=== PATIENT | female | born 1970 | race Asian ===

== ENCOUNTER 2017-05-08 05:58 | Observation (INO) | payer OTHER ==
--- NOTE | 2017-05-02 11:05 | MH ---
cc: TANISHA ALTAMIRANO DATE OF ADMISSION: 05/08/2017 DATE OF 1970 PRINCIPAL DIAGNOSIS Right breast cancer. ATTENDING PHYSICIAN Tanisha Altamirano MD HISTORY OF PRESENT ILLNESS The patient is a 47-year-old [place] female with newly diagnosed multicentric right breast cancer. She had a diagnostic bilateral mammogram at [facility] on February 15 which demonstrated very dense breast tissue and microcalcifications in the right breast. Breast MRI on March 04 demonstrated a 9 mm ocu-mgtw-wwuk area of enhancement between 11 and 12 o'clock in the left breast and four masses in the upper outer right breast. The largest was at 10 o'clock and targeted right breast ultrasound confirmed the lesion at 10 o'clock, 5 cm from the nipple and a lesion at 9 o'clock subareolar. Ultrasound-guided core biopsy of both lesions revealed invasive lobular carcinoma. The abnormality in the left breast had not yet been evaluated. The right breast mass at 9 o'clock was 1.6 x 2-cm and the right breast mass at 10 o'clock was 8 x 7-mm with an adjacent 1.6-cm mass. MEDICAL PROBLEMS Hypertension. PRIOR SURGERY Total abdominal hysterectomy and bilateral salpingo-oophorectomy. MEDICATIONS She currently takes no medications. ALLERGIES Has no drug allergies. REPRODUCTIVE HISTORY G1, P1. Menarche age 12. Child age 30. Surgical menopause age 43. She has never taken hormone replacement. FAMILY HISTORY Noncontributory. REVIEW OF SYSTEMS A 12-point review of systems was noncontributory. PHYSICAL EXAMINATION GENERAL: She is alert and oriented x 3 and in no acute distress. HEENT: Exam was unremarkable. NECK: Supple with no adenopathy or thyromegaly. CHEST: Clear. CARDIAC EXAM: Normal S1 and S2 with no murmurs, rubs or gallops. BREAST EXAM: Revealed fibrocystic change and an area of induration in the upper outer right breast. ABDOMEN: The abdominal exam was significant for a Pfannenstiel scar with no masses or tenderness. The remainder of her exam was unremarkable. IMPRESSION AND PLAN Ms. Jeter has multifocal right breast cancer with abnormal imaging in the left breast. After further review of her outside studies, the radiologist recommended repeat MR and the patient has opted for bilateral mastectomy. She will also need a sentinel lymph node biopsy on the right side and has BRCA testing pending. She has also opted for bilateral immediate reconstruction which will be performed by Dr. Reyes. She has seen Dr. Clemons in medical oncology who recommended Gotqhu-Z-Uprd placement to facilitate adjuvant chemotherapy. MD ARLENE Acuña/JUANY /10:22 AM /10:32 AM
[~2017-05-08] VITALS: Ht 165.1 cm; Wt 71.4 kg
[2017-05-08] MEDS ORDERED: HYDR25TA5 PO (07:41)
[2017-05-08] MEDS ORDERED: METOPROLOL TARTRATE 25 MG TAB PO PRN (08:15)
[2017-05-08] MEDS ORDERED: CHLORHEXIDINE GLUCONATE 2 % 1 PACK (2 CLOTHS) TOPICAL PRN (08:15)
[2017-05-08] MEDS ORDERED: ceFAZolin 2 GM PREMIX 50 ML IV SCH (08:15)
[2017-05-08] MEDS ORDERED: LACTATED RINGER'S 1000 ML IV PRN (08:15)
[2017-05-08] MEDS ORDERED: POVIDONE IODINE 5% (ANTISEPSIS KIT) 4 APPLICATIONS EACH NARE PRN (08:15)
[2017-05-08] MEDS ORDERED: SODIUM CHLORID 0.9% 500 ML IV PRN (08:15)
[2017-05-08] MEDS ORDERED: ONDANSETRON HCL 4 MG/2 ML VIAL IV PUSH SCH (08:15)
[2017-05-08] MEDS ORDERED: INSULIN HUMAN REGULAR 1,000 UNITS/10 ML VIAL SQ PRN (08:15)
[2017-05-08] MEDS ORDERED: LACTATED RINGER'S 1000 ML INJ 2,000 ML IV ONE (09:09)
[2017-05-08] MEDS ORDERED: ONDANSETRON HCL 4 MG/2 ML VIAL IV PUSH ONE (09:09)
[2017-05-08] MEDS ORDERED: PROPOFOL 200 MG/20 ML AMP IV ONE (09:09)
[2017-05-08] MEDS ORDERED: BUPIVACAINE HCL PF 0.5% 30 ML VIAL ONE (10:21)
[2017-05-08] MEDS ORDERED: HEPARIN SODIUM - IV 10,000 UNITS/10 ML VIAL ONE (10:21)
[2017-05-08] MEDS ORDERED: GENTAMICIN SULFATE 80 MG/2 ML VIAL ONE (10:21)
[2017-05-08] MEDS ORDERED: LIDOCAINE 0.5%/EPINEPHrine 1:200,000 SOLN 50 ML VIAL ONE (10:21)
[2017-05-08] MEDS ORDERED: BUPIVACAINE HCL PF 0.25% 30 ML VIAL ONE (10:21)
[2017-05-08] MEDS ORDERED: LIDOCAINE HCL 1% 50 ML VIAL ONE (10:22)
--- NOTE | 2017-05-08 10:35 | RADRPT ---
EXAM DATE/TIME: 05/08/2017 08:59 [facility] COMPARISON: No previous studies available for comparison. EXTERNAL COMPARISON : [facility], US BREAST[facility] LEFT, [facility], [facility] BREAST, RIGHT, March 11, 2017. INDICATIONS : Breast cancer. MEDICAL HISTORY : Hypertension. Breast cancer. SURGICAL HISTORY : Hysterectomy. ENCOUNTER: Initial ACUITY: 2 months PAIN SCORE: 1/10 LOCATION: Right breast. AREA EVALUATED: Right breast, mid quadrant; at 9 o'clock Radiopharmaceutical dose: 1.1 mCi Tc99m Turin colloid FINDINGS: Breast ultrasound was performed prior to lymphoscintigraphy. CONCLUSION: Uncomplicated injection for lymphoscintigraphy. Donald Granados MD FACR on May 08, 2017 at 10:33 Board Certified Radiologist. This report was verified electronically.
[2017-05-08] MEDS ORDERED: ACETAMINOPHEN 1000 MG/100 ML 100 ML IV ONE (10:40)
[2017-05-08] MEDS ORDERED: MIDAZOLAM HCL 2 MG/2 ML VIAL ONE ×2 (10:40→11:10)
[2017-05-08] MEDS ORDERED: SUGAMMADEX SODIUM 200 MG/2 ML VIAL IV PUSH ONE ×2 (10:41)
[2017-05-08] MEDS ORDERED: HYDROmorphone HCL PF 2 MG/ML VIAL ONE (10:41)
--- NOTE | 2017-05-08 10:46 | RADRPT ---
EXAM DATE/TIME: 05/08/2017 09:41 [facility] COMPARISON: No previous studies available for comparison. INDICATIONS : Right breast cancer. DOSE: 1.1 mCi Tc99m Sulfur Colloid INJECTION SITE: Right Breast MEDICAL HISTORY : Hypertension. SURGICAL HISTORY : None. ENCOUNTER: Initial ACUITY: 1 day PAIN SCALE: 0/10 LOCATION: Right Breast. TECHNIQUE: Injection(s) of sulfur colloid was performed under sonographic guidance. Static imagi ng was obtained.. FINDINGS: Radioisotope is noted without localization. CONCLUSION: There is no localization evident. Donadl Granados MD FACR on May 08, 2017 at 10:44 Board Certified Radiologist. This report was verified electronically.
[2017-05-08] MEDS ORDERED: APREPITANT 40 MG CAP ONE (10:52)
[2017-05-08] MEDS ORDERED: BUPIVACAINE/EPINEPHRINE 0.5% 50 ML VIAL ONE (11:56)
[2017-05-08] MEDS ORDERED: HEPARIN SODIUM - SQ 10,000 UNITS/ML VIAL ONE (11:56)
[2017-05-08] MEDS ORDERED: ceFAZolin INJ 1,000 MG VIAL ONE ×2 (13:30→14:58)
[2017-05-08] MEDS ORDERED: *morphine SULFATE 8 MG/ML PERIprocedure ONLY ONE (15:59)
[2017-05-08 16:00] VITALS: BP 110/60; PULSE 71; RESP 17; TEMP 95.5; O2SAT 97
[2017-05-08] MEDS ORDERED: DO NOT ADM ANY ANTICOAGULANT DRUGS PRN (16:30)
[2017-05-08] MEDS ORDERED: oxyCODONE/ACETAMINOPHEN 7.5 MG/325 MG TAB PO PRN (16:30)
[2017-05-08] MEDS: HYDROmorphone HCL PF 1 MG/ML VIAL IV PRN ×2 (19:08→23:13)
[2017-05-08 20:00] VITALS: BP 113/61; PULSE 73; RESP 16; TEMP 97; O2SAT 98
[2017-05-08] MEDS: PROMETHAZINE HCL 25 MG TAB PO PRN (23:12)
[2017-05-09] VITALS (7 sets, daily range): BP systolic 98–145; BP diastolic 53–78; PULSE 72–90; RESP 16–20; TEMP 96.6–98.7; O2SAT 95–99
[2017-05-09] MEDS: HYDROmorphone HCL PF 1 MG/ML VIAL IV PRN ×3 (04:34→18:13)
--- NOTE | 2017-05-09 08:40 | MP ---
cc: TANISHA ALTAMIRANO DATE OF SURGERY 05/08/2017 PRINCIPAL DIAGNOSIS Multifocal right breast cancer PROCEDURE PERFORMED Bilateral skin sparing mastectomy with left nipple sparing mastectomy, bilateral tissue application security consultant reconstruction with AlloMax, right axillary sentinel lymph node biopsy, and right subclavian Otppnm-F-Ycpo placement. SURGEONS Tanisha Altamirano MD and Adrian Reyes MD ANESTHESIA General endotracheal INDICATION The patient is a 47-year-old [place] woman with multifocal right breast cancer which is HER2/buddy positive. She has opted for bilateral mastectomy with immediate reconstruction and now presents for the procedure. FINDINGS AT THE TIME OF SURGERY The left subclavian vein was identified but the J wire would not advance easily into the central circulation. Four sentinel lymph nodes were identified. #1 had a count of 8955, #2 had a count of 506, #3 had a count of 138, and #4 had a count of 425. Touch prep analysis was not performed. PROCEDURE PERFORMED After informed consent was obtained and site verification was performed, the patient was brought to the radiology suite where she underwent peritumoral radionuclide injection. She was then brought to the major operating room where she underwent general endotracheal anesthesia. She was given a single dose of IV Ancef and sequential compression hose were placed. The right and left breasts, as well as the right arm were then prepped and draped in a sterile fashion. The patient was placed in Trendelenburg and multiple attempts were made to cannulate the left subclavian vein which could be identified, but the J wire would not easily advanced. Further attempts were then abandoned and the right subclavian vein was percutaneously cannulated. The J-wire advanced easily into the central circulation where its position was confirmed with fluoroscopy. Sharp and electrocautery dissection were performed around the wire and a subcutaneous pocket was created for the reservoir extending down to the chest wall. The catheter was measured out at 30 cm and cut off. A peel-away sheath and introducer were then advanced over the wire and the introducer and wire were removed. The catheter advanced easily through the peel-away sheath where a good catheter tip position was identified via fluoroscopy at 17 cm. The catheter was cut off at this point and secured to the reservoir which was noted to flush and aspirate easily. The reservoir was secured to the chest wall with two 2-0 Prolene sutures and good hemostasis was noted. The wound was closed using interrupted 3-0 Vicryl subcutaneous sutures and a 4-0 Monocryl subcuticular suture. Attention was then turned to the right breast where an inframammary crease incision was anesthetized. 200 cc of tumescent solution mixed with 15 cc of 0.5% Marcaine with epinephrine were then used to infiltrate circumferentially around the breast in the plane between the anterior breast fascia and subcutaneous fat. Sharp dissection was then performed via the inframammary crease incision to develop the plane between the anterior breast fascia and subcutaneous fat medially and laterally up to the level of the nipple. Electrocautery was then used to dissect the posterior breast tissue off the pectoralis muscle all away up to the level of the clavicle. The nipple was then circumferentially dissected free from surrounding structures and included with the breast specimen. Further sharp dissection was performed medially and laterally in the superior portion of the breast in the plane between the anterior breast fascia and subcutaneous fat. Electrocautery was then used to detach any remaining breast tissue and the breast was delivered through the wound. The specimen was oriented with the nipple anterior, one short suture superiorly, and one long suture laterally. Hemostasis was easily obtained with electrocautery. A separate axillary incision was then incised at the inferior aspect of the left axillary hairline. Electrocautery dissection was used to divide the clavipectoral fascia and the level I axillary space was then entered. Four sentinel lymph nodes were identified based on palpation and each was circumferentially dissected free from surrounding structures using the harmonic scalpel with the counts as noted. These were sent separately as permanent specimens and were not sent for touch prep analysis. Some adjacent axillary tissue was also circumferentially dissected free from surrounding structures using the harmonic scalpel and this was sent as a permanent specimen. Care was taken to preserve the axillary vein as well as the long thoracic and thoracodorsal neurovascular bundles. Good hemostasis was noted in the axilla and the wound was closed using interrupted 3-0 Vicryl subcutaneous sutures and a 4-0 Monocryl subcuticular suture. Further right breast reconstruction was then performed by Dr. Reyes, as well as the left breast procedure and this will be recorded on a separate dictation. MD ARLENE Acuña/PAMELA /1:48 PM /8:29 AM
--- NOTE | 2017-05-09 08:58 | MP ---
cc: JESSE SHAW M.D. DATE OF SURGERY 05/08/2017 PREOPERATIVE DIAGNOSIS Right breast cancer, patient for bilateral mastectomies, right side lymph node dissection sampling and chemotherapy port placement. POSTOPERATIVE DIAGNOSIS Right breast cancer, patient for bilateral mastectomies, right side lymph node dissection sampling and chemotherapy port placement. OPERATION 1. Right chest chemotherapy port placement. 2. Right areola right side sparing mastectomy. 3. Right axillary lymph node sampling all by Dr. Vance. 4. Left simple nipple sparing mastectomy Dr. Shaw. 5. Bilateral breast reconstruction with tissue printing plate setter and a AlloMax grafts by Dr. Shaw. SURGEON Dr. Vance and Dr. Shaw ANESTHESIA General INDICATIONS This is a 47-year-old [place] female with a diagnosis of right side breast cancer in two areas on the right side. The left side is clean. The patient underwent a detailed explanation of the reconstruction options with me including all prosthesis, all autologous and combination of the two different. The pros, cons, risks and complications were explained The possibility of issues such as bleeding, hematoma, seroma, infection, wound dehiscence, flap necrosis, exposure of the prosthesis, loss of reconstruction and starting over again was discussed with the patient. Currently she is not interested in any autologous muscle, flaps or microvascular techniques. The patient also understands the multiple steps required in the prosthetic reconstruction including the tissue printing plate setter, the reshaping and silicone gel implants. On her right side, it is possible to do a areolar sparing mastectomy. On the left side it is actually possible to do a nipple sparing mastectomy with pathology control. Her overall breast size is in the range of 400 cc and the nipple-areolar position is normal grade one. PROCEDURE The patient was brought to the operating room, was given supine position. Anesthesia was started. Prep and drape was done. Time-out was called by Dr. Vance first and IV antibiotic had been given. The first part of the surgery was carried out with Dr. Vance. She attempted to put a port on the left side, however, due to technical issues, the guidewire could not be advanced in the vena cava. She abandoned that side and completed the port placement on the right side instead. The surgery for the mastectomy on both side was then continued simultaneously. The right side will be dictated including the lymph node sampling by Dr. Vance. On the left side, the mixture of tumescent Marcaine and sterile saline was used to tumesced the flaps. The inframammary crease incision was used. First, the anterior and the inferior pole of the breast was released. The breast flap was developed over the breast tissue. The patient does have a dense fibrous breast tissue with a small amount of fatty interface between the skin and the breast. Care was taken to maintain the flap thickness as good as possible. Once the underside of the nipple was reached, an Allis clamp was placed in the nipple from the breast tissue. A small tissue sample was taken from the underside of the nipple on the breast side and will be sent for permanent pathology examination as well. The flap elevation was continued to the periphery of the breast on all sides. The underside was released from the pectoralis major muscle. Again tumescent solution was used and the mastectomy was completed without any difficulty. The superior 12 o'clock aspect of the breast was marked with a long suture and the position of the nipple was marked with a short suture. The tissue weight on the left side is 400 grams. The flap was double checked for hemostasis. The axillary area was also double checked for hemostasis. The cavity was copiously irrigated clean removing all the free fat lobules. The flap color was excellent. The flap remained warm. A subpectoral pocket was created. The inferior attachments of the pectoralis major muscle were released. Hemostasis again was completed with suture ligature for perforating vessels and AlloMax graft. A 6 x 16 was hydrated with saline and antibiotic solution with one on each side. The serial number of the AlloMax grafts were recorded by the nurse. The AlloMax was placed along the anterior axillary border and inframammary fold crease surrounding it out in the lateral aspect. A 10 mm Italo-Rodrigues drain was used brought out through a separate stab incision. It was placed in the subcutaneous pocket only. The printing plate setter was [employer] [id number] catalogue number, the serial number on the left side is [id number]. The printing plate setter was emptied of all the air and was placed under the pectoralis major muscle and the AlloMax was smoothed over them. The initial filling was done while keeping the skin flap open in order to be able to adjust the printing plate setter position. 200 cc of saline was introduced and the printing plate setter was adjusted to lie in portion to her mastectomy defect. The right side mastectomy and lymph node dissection in the meantime had been completed by Dr. Vance. Again, the cavity was irrigated copiously clean. The skin was cleaned and sterile drapes were used to isolate this area and the hemostasis was completed. It was necessary to remove some small amount of tissue from the underside of the flap to make it more even. This tissue will be sent separately for pathology examination as it is on the cancer side. Similar placement of AlloMax and a tissue printing plate setter was completed. The serial number printing plate setter on the right side is [id number]. Again, a 10 mm Italo-Rodrigues drain was placed in the subcutaneous pocket bringing it slightly high in the axillary side as well. All the areas were then closed with 3-0 and 2-0 Vicryl's it was not necessary to put any skin sutures as the approximation was excellent. The areas were cleaned and dried. A sterile dressing was applied. The patient remained stable. Intraoperative blood loss less than 150-200 cc including the specimen. The tissue weight on the right side was 375 grams. No complications. signed, not fully reviewed MD MERT Freire/PAMELA /3:01 PM /8:36 AM DHIRAJ
[2017-05-09] MEDS ORDERED: CYCLOBENZAPRINE HCL 10 MG TAB PO PRN (09:15)
--- NOTE | 2017-05-09 09:18 | HHI.PR ---
Subjective Subjective Notes No nausea but minimal PO intake. Requiring dilaudid IV for pain control. Objective Vitals/I&O Vital Signs Date Time Temp Pulse Resp B/P (MAP) Pulse Ox O2 Delivery O2 Flow Rate FiO2 05/09/17 08:00 96.9 76 20 125/55 (78) 99 05/08/17 16:30 Nasal Cannula 2 Left drain 50cc. Right drain 90cc. Radiology CXR pending today to evaluate line placement. Cardiovascular: Regular Lungs: Clear Narrative Exam Wound flaps clean and dry. No ischemia or seroma. No erythema or cellulitis. A/P Assessment and Plan Doing well. Anticipate discharge later today or tomorrow. Discharge Planning Anticipate discharge later today or tomorrow when pain controlled on oral agents. Attending Statement Doing well. Encourage ambulation and po intake/oral analgesics. Tanisha Vance MD May 09, 2017 09:18
[2017-05-09] MEDS ORDERED: PILL SPLITTER OTHER PRN (09:30)
[2017-05-09] MEDS: PROMETHAZINE HCL 25 MG TAB PO PRN (10:02)
--- NOTE | 2017-05-09 10:09 | RADRPT ---
EXAM DATE/TIME: 05/09/2017 09:40 [facility] COMPARISON: No previous studies available for comparison. INDICATIONS : Post infusaport placement MEDICAL HISTORY : Carcinoma, breast. SURGICAL HISTORY : Mastectomy, bilateral. expanders and reconstruction bilaterally ENCOUNTER: Subsequent ACUITY: 1 day PAIN SCORE: 10/10 LOCATION: Bilateral chest FINDINGS: Portable AP view of the chest demonstrates a normal-sized cardiac silhouette. Right chest wall Infuse -a-Port is present with distal tip in the right atrium. Lungs are underinflated with mild atelectasis at the lung bases. No effusion or pneumothorax is identified. There are bilateral surgical drains ov erlying the breasts and there are bilateral tissue expanders present. Soft tissue air is present, as expected. CONCLUSION: 1. Right chest wall Bvwmyf-n-Wefe is present and distal tip is in the right atrium. There is no pneum othorax. 2. Postsurgical changes are present related to bilateral mastectomy and tissue expanders and surgical drains are present. Ari Aguero MD on May 09, 2017 at 10:06 Board Certified Radiologist. This report was verified electronically.
[2017-05-10] VITALS: BP 121/59; PULSE 81; RESP 17; TEMP 99.4; O2SAT 96
[2017-05-10] MEDS: HYDROmorphone HCL PF 1 MG/ML VIAL IV PRN ×2 (00:10→06:21)
[2017-05-10 08:00] VITALS: BP 131/58; PULSE 71; RESP 20; TEMP 96.9; O2SAT 95
--- NOTE | 2017-05-10 09:06 | PD.PLAS.PN ---
Subjective Remarks DOing very well now Pain much better Breasts - both side flaps viable, no hematoma, no bruising OK to remove dressing and keep open Cover only the drain sites. DC today FU 1 week Saturday OK to shower after Saturday. Vital Signs Date Time Temp Pulse Resp B/P (MAP) Pulse Ox O2 Delivery O2 Flow Rate FiO2 05/10/17 08:00 96.9 71 20 131/58 (82) 95 05/10/17 00:00 99.4 81 17 121/59 (79) 96 05/09/17 20:00 98.3 90 17 106/56 (73) 96 05/09/17 19:48 21 05/09/17 16:00 98.7 79 20 98/53 (68) 98 05/09/17 12:00 97.4 78 19 114/53 (73) 95 I/O 05/09/17 05/09/17 05/09/17 05/10/17 05/10/17 05/10/17 07:00 15:00 23:00 07:00 15:00 23:00 Intake Total 120 ml 1440 ml 240 ml 120 ml Output Total 890 ml 2060 ml 340 ml Balance -890 ml 120 ml -620 ml -100 ml 120 ml Intake Oral 120 ml 1440 ml 240 ml 120 ml Output Urine Total 750 ml 2000 ml 300 ml Drainage Total 140 ml 60 ml 40 ml # Bowel Movements 0 Adrian Reyes MD May 10, 2017 09:06
[2017-05-10] MEDS ORDERED: OXYC1TAB35 PO (09:08)
--- NOTE | 2017-05-10 09:41 | HHI.PR ---
Subjective Subjective Notes PO intake improved. Pain control OK on percocet. Objective Vitals/I&O Vital Signs Date Time Temp Pulse Resp B/P (MAP) Pulse Ox O2 Delivery O2 Flow Rate FiO2 05/10/17 08:00 96.9 71 20 131/58 (82) 95 05/09/17 19:48 21 05/08/17 16:30 Nasal Cannula 2 Drain output 50cc left, 50cc right. Radiology CXR shows no pneumothorax. Line tip in right atrium. Narrative Exam Wound flaps clean and dry. No ischemia or seroma. No erythema or cellulitis. A/P Assessment and Plan Doing well. Discharge home. Attending Statement Good pain control and recovery following bilateral mastectomy and reconstruction. Tanisha Vance MD May 10, 2017 09:40
--- NOTE | 2017-05-10 09:47 | HHI.DS ---
Discharge Summary Admission Date May 08, 2017 at 14:53 Discharge Date: May 10, 2017 Admitting Diagnosis Multifocal right breast cancer Procedures Bilateral mastectomy with tissue supervisor chlorine liquefaction reconstruction, right axillary sentinel lymph node biopsy, right subclavian port placement. Brief History Diagnosed with multifocal right breast cancer requiring mastectomy. PE at Discharge Lungs clear. Chest wall flaps clean and viable with no infection. Hospital Course Admitted following surgery 05/08 for pain control. Responded well to treatment. Pt Condition on Discharge: Good Discharge Disposition: Discharge Home Discharge Instructions DIET: Follow Instructions for: As Tolerated, No Restrictions Activities you can perform: Shower Only-No Bath Tanisha Vance MD May 10, 2017 09:47
[2017-05-10] MEDS ORDERED: PROM25TA10 PO (10:37)
[2017-05-10] MEDS ORDERED: CYCL5TAB PO (10:38)
--- NOTE | 2017-05-14 10:41 | MD ---
cc: TANISHA ALTAMIRANO ADMISSION DATE: 05/08/2017 DISCHARGE DATE: 05/10/2017 PRINCIPAL DIAGNOSIS Multifocal right breast cancer PROCEDURE PERFORMED During the admission, bilateral skin sparing mastectomy with left nipple sparing procedure, right subclavian Othlet-K-Llgo placement, bilateral tissue gluer machine operator placement with AlloMax and right axillary sentinel lymph node biopsy. ATTENDING PHYSICIAN Tanisha Altamirano MD HISTORY OF PRESENT ILLNESS The patient is a 47-year-old [place] female with newly diagnosed multifocal right breast cancer. This was initially noted on a bilateral mammogram in [place] which demonstrated dense breasts. MRI demonstrated a 9 mm area of non mass-like enhancement between 11 and 12 o'clock in the left breast and four masses in the upper outer right breast. These were located at 10 o'clock as well as 9 o'clock. Ultrasound-guided core biopsy of two of the lesions one at 10 o'clock and one at 9 o'clock revealed invasive lobular carcinoma. The left breast area of enhancement was not evaluated but the patient subsequently opted for bilateral mastectomy with immediate reconstruction. MEDICAL PROBLEMS Includes hypertension. PAST SURGERIES Included a total abdominal hysterectomy and bilateral salpingo-oophorectomy. MEDICATIONS She takes no medications. ALLERGIES She has no drug allergies. FAMILY HISTORY Noncontributory REVIEW OF SYSTEMS A 12-point review of systems was noncontributory. PHYSICAL EXAMINATION Revealed an area of induration in the upper outer right breast. HOSPITAL COURSE The patient was admitted, following bilateral skin sparing mastectomy with the left nipple sparing procedure as well as bilateral tissue gluer machine operator reconstruction with AlloMax, right axillary sentinel lymph node biopsy, and right subclavian port placement. She did well following surgery but did require greater than 24 hours of observation to obtain adequate pain control on oral analgesics. She was subsequently discharged on postoperative day two, tolerating a diet with good pain control on oral analgesics as well as Flexeril. She is scheduled to follow-up next week and routine drain care was recommended. MD ARLENE Acuña/PAMELA /9:48 AM /10:32 AM
== END 2017-05-10 11:55 | disposition home or self-care (01) ==
LOC: HSDC 05:58 → N07B 14:53
PROVIDERS: ADMIT Surgery; ATTEND Surgery
DX: C50.911 Malignant neoplasm of unspecified site of right female breast (principal); I10 Essential (primary) hypertension; Z17.0 Estrogen receptor positive status [ER+]
CPT/HCPCS: 00402; 19303; 19357; 36561; 38525; 71010; 76000; 76642; 78195; 88307; 88309; 96374; 96376; A9541; C1788; C1789; C5271; G0378; J0131; J0690; J1170; J1644; J2250; J2270; J2405; J3010; J7120; J8501; Q0169; Q4100; 88305; J1580

== ENCOUNTER → 2017-10-08 | Day surgery (SDC) | payer OTHER ==
[~2017-10-08] VITALS: Ht 162.6 cm; Wt 72.5 kg
[~2017-10-08] MED LIST: ACETAMINOPHEN/HYDROcodone 325 MG/5 MG TAB ONE; CHLORHEXIDINE GLUCONATE 2 % 1 PACK (2 CLOTHS) TOPICAL PRN; CYCL5TAB PO; HYDR-3516 PO; HYDR25TA5 PO; LACTATED RINGER'S 1000 ML IV PRN; LIDOCAINE 1%/EPINEPHrine 1:100,000 SOLN 30 ML VIAL ONE; METOPROLOL TARTRATE 25 MG TAB PO PRN; MIDAZOLAM HCL 2 MG/2 ML VIAL ONE; OXYC1TAB35 PO; POVIDONE IODINE 5% (ANTISEPSIS KIT) 4 APPLICATIONS EACH NARE PRN; PROM25TA10 PO; SODIUM CHLORID 0.9% 500 ML IV PRN; TAMO10TA6 PO; ceFAZolin 2 GM PREMIX 50 ML IV SCH
[2017-10-08 12:55] VITALS: BP 113/72; PULSE 75; RESP 16; TEMP 98.1; O2SAT 100
--- NOTE | 2017-10-09 09:01 | MP ---
cc: JESSE REYES M.D. DATE OF SURGERY: 10/08/2017 PREOPERATIVE DIAGNOSIS 1. Status post bilateral breast tissue signs sales representative reconstruction. 2. Right side chemotherapy port, for removal. POSTOPERATIVE DIAGNOSIS 1. Status post bilateral breast tissue signs sales representative reconstruction. 2. Right side chemotherapy port, for removal. OPERATION 1. Removal right side chest chemotherapy port. 2. Bilateral breast tissue signs sales representative removal, reshaping of breast with capsulorrhaphy and capsulotomy and reconstruction with bilateral breast silicone gel, smooth round 410 extra high-profile implants. SURGEON Dr. Reyes. ANESTHESIA General. INDICATIONS This is a 47-year-old [place] female who has undergone bilateral mastectomies, bilateral breast tissue signs sales representative reconstruction and chemotherapy port on the right side. She originally had the right side breast cancer. The right side mastectomy was areolar sparing, the left side is nipple sparing. The patient has expanders in the range of 480 ccs which are being replaced by permanent silicone gel implants. She has undergone detailed explanation of the procedure, pros, cons, risks, complications, implant selection, size selection, etc., and is willing to go ahead with the surgery. PROCEDURE The patient was brought to the operating room, was given anesthesia. Prep and drape was done. A time-out was called and completed. The procedure was started by using lidocaine with epi and saline dilute mixture to inject the right side upper chest wall port scar. The port was exposed and released from the bottom. The tubing was secured. A 3-0 Vicryl [id number] suture was placed around the tubing passage and while holding the suture snug, the tube was withdrawn and the suture tying was completed. There was no bleeding from the track. The remaining capsule was partially excised and closed with deep Vicryl sutures, 2-0 Vicryl and then 3-0 Vicryl sutures for the skin. The port tubing was noted to be smoothly cut at the other end. The surgery was continued. The original inframammary crease incision lines were used. The tissues were injected. The old scar was excised and the signs sales representative capsule was opened. The signs sales representative was with blunt dissection from the front and the back and was gradually slipped out without any difficulty. The cavity was noted to be clean on both sides. The lateral capsule gutter was closed with interrupted 2-0 Vicryl sutures, closing it in by about 1/2 inch on either side of the gutter and the medial and superior capsule was released. The underside of the anterior capsule was also scored in linear radial lines to release the muscle. The bleeding was controlled. The sizer was used using 500 ccs silicone gel sizer to check the volume and also the position and outline of the cavity. The final implants selected are silicone gel Natrelle, style SRF-520, serial number implant [id number] on the patient's left, serial number [id number] on the patient's right. The entrance to the pocket was pre-sutured with Vicryl sutures. The implants were placed, posterior tab was verified, borders were smoothed and the Vicryl sutures were tied down protecting the lower pole of the implant. The rest of the closure was done with deep internal Vicryl sutures with dermal closing, no need for any skin sutures. The patient remained stable. Intraoperative blood loss less than 20 ccs. No complications. signed, not fully reviewed MD MERT Freire/[place] /9:54 AM /8:41 AM [email or web address]
== END | disposition home or self-care (01) ==
LOC: PHSDC 06:18
PROVIDERS: ATTEND Plastic Surgery
DX: Z42.1 Encounter for breast reconstruction following mastectomy (principal); I10 Essential (primary) hypertension; Z85.3 Personal history of malignant neoplasm of breast
CPT/HCPCS: 00402; 19342; 36590; C1789; J2250; J3010; J7120